=== PATIENT | female | born 1980 | race Caucasian/White ===

== ENCOUNTER 2022-12-15 20:05 | Emergency (ER) | payer MEDICAID ==
[~2022-12-15] VITALS: Ht 154.9 cm; Wt 58.8 kg
[2022-12-15] MEDS ORDERED: ONDANSETRON HCL 4MG/2ML INJ IV NR (20:15)
[2022-12-15] MEDS ORDERED: SODIUM CHLORIDE 0.9% 500 ML IV NR (20:38)
[2022-12-15 20:48] LABS: HEMATOCRIT. 38.8 % (36.0-48.0); HEMOGLOBIN. 12.9 g/dL (12.0-16.0); MEAN CORPUSCULAR VOLUME 90.3 fL (81.0-99.0); MEAN PLATELET VOLUME 9.1 fl (7.4-10.4); PLATELET 313 x1000/uL (130-400); RED CELL DISTRIBUTION WIDTH 14.7 % (11.6-14.6)
[2022-12-15 20:56] LABS: CHLORIDE 107 mEq/L (98-107)
[2022-12-15 21:00] VITALS: BP 115/72
[2022-12-15 21:37] LABS: PLATELET ESTIMATE NORMAL
== END 2022-12-15 22:36 | disposition left against medical advice (07) ==
LOC: ER 20:05
DX: Z53.21 Procedure and treatment not carried out due to patient leaving prior to being seen by health care provider (principal)
CPT/HCPCS: 36415; 80053; 85025

== ENCOUNTER 2024-03-28 07:08 | Emergency (ER) | payer OTHER, MEDICAID ==
[~2024-03-28] VITALS: Ht 165.1 cm; Wt 66.0 kg
[2024-03-28 07:09] VITALS: O2SAT 99
[2024-03-28] MEDS: ASPIRIN 325MG EC TABLET PO ONE (08:09)
[2024-03-28 08:45] LABS: BASOPHILS % 0.5 % (0.0-2.0); HEMATOCRIT. 34.8 % (36.0-48.0); HEMOGLOBIN. 10.8 g/dL (12.0-16.0); LYMPHOCYTES % 24.4 % (20.0-50.0); MEAN CORPUSCULAR HEMOGLOBIN 29.7 pg (28.0-32.0); MEAN CORPUSCULAR HGB CONC 31.2 g/dL (31.0-37.0); MEAN CORPUSCULAR VOLUME 95.2 fL (81.0-99.0); MEAN PLATELET VOLUME 7.5 fl (7.4-10.4); MONOCYTES % 8.4 % (2.0-8.0); NEUTROPHILS % 65.7 % (40.0-76.0); PLATELET 416 x1000/uL (130-400); RED BLOOD CELL COUNT 3.65 mill/uL (4.2-5.4); RED CELL DISTRIBUTION WIDTH 19.6 % (11.6-14.6); WHITE BLOOD COUNT 9.6 x1000/uL (4.5-11.0)
[2024-03-28 08:57] LABS: CHLORIDE 106 mEq/L (98-107); POTASSIUM 5.7 mEq/L (3.5-5.1); SODIUM 132 mEq/L (136-145)
[2024-03-28 08:58] LABS: CALCIUM 9.5 mg/dL (8.7-10.4); CARBON DIOXIDE 22 mEq/L (21-32)
[2024-03-28 09:03] LABS: CREATININE 0.4 mg/dL (0.6-1.0); GLUCOSE 93 mg/dL (70-105); UREA NITROGEN BLOOD 10 mg/dL (9-23)
[2024-03-28 09:14] LABS: TROPONIN I HIGH SENSITIVITY < 4 ng/L (3.0-34)
[2024-03-28] MEDS: METOCLOPRAMIDE HCL 10MG/2ML VIAL IV ONE (09:19)
[2024-03-28] MEDS ORDERED: INSULIN REGULAR (HUMULIN R) 1000UNITS/10ML VIAL IV ONE (09:30)
[2024-03-28] MEDS ORDERED: ALBUTEROL (0.083%) 2.5MG/3ML NEB HHN ONE (09:30)
[2024-03-28 09:55] LABS: HCG SCREEN NEGATIVE
[2024-03-28] MEDS: INSULIN REGULAR (HUMULIN R) 1000UNITS/10ML VIAL IV ONE (10:01)
[2024-03-28] MEDS: DEXTROSE 50% WATER 50ML SYRINGE IV ONE (10:03)
[2024-03-28] MEDS: SODIUM ZIRCONIUM CYCLOSILICATE 10GM/PACKET PO ONE (10:31)
[2024-03-28] MEDS ORDERED: IPRATROPIUM/ALBUTEROL 0.5-3(2.5)MG/3ML NEB HHN PRN (10:45)
[2024-03-28] MEDS ORDERED: DOCUSATE SODIUM 100MG CAPSULE PO PRN (10:45)
[2024-03-28] MEDS ORDERED: ACETAMINOPHEN 325MG TABLET PO PRN ×2 (10:45)
[2024-03-28] MEDS ORDERED: DEXTROSE 50% WATER 50ML SYRINGE IV PRN (10:45)
[2024-03-28] MEDS ORDERED: CLONIDINE 0.1MG TABLET PO PRN (10:45)
[2024-03-28] MEDS ORDERED: ONDANSETRON HCL 4MG/2ML INJ IV PRN (10:45)
[2024-03-28] MEDS ORDERED: IOHEXOL-350 100 ML BOTTLE ONE (11:48)
[2024-03-28 12:31] LABS: POTASSIUM 3.7 mEq/L (3.5-5.1)
[2024-03-28 12:37] LABS: TRIGLYCERIDE 163 mg/dL (0-150)
[2024-03-28 12:38] LABS: LDL CHOLESTEROL 76 mg/dL (5-100)
[2024-03-28 12:39] LABS: CHOLESTEROL 137 mg/dL (<200); HDL CHOLESTEROL 36 mg/dL (>65); TROPONIN I HIGH SENSITIVITY < 4 ng/L (3.0-34)
[2024-03-28 12:42] LABS: THYROID STIMULATING HORMONE 1.51 uIU/mL (0.55-4.78)
[2024-03-28] MEDS: BLOOD SUGAR DIAGNOSTIC STRIP TEST SCH (13:34)
[2024-03-28] MEDS: INSULIN LISPRO 100 UNITS/ML SUBCUT SCH (13:37)
[2024-03-28 14:09] VITALS: BP 133/81; PULSE 95; RESP 9; TEMP 36.89184; O2SAT 100
== END 2024-03-28 14:33 | disposition short-term general hospital (02) ==
LOC: ER 07:08
DX: R07.81 Pleurodynia (principal); I10 Essential (primary) hypertension; E11.9 Type 2 diabetes mellitus without complications; C50.919 Malignant neoplasm of unspecified site of unspecified female breast; E87.5 Hyperkalemia; Z20.822 Contact with and (suspected) exposure to COVID-19
CPT/HCPCS: 80061; 80048; 82962; 83036; 84703; 83880; 84132; 84443; 85025; 85610; 84484; 36415; 71045; 71275; 93005; 96372; 96374; 96375; 99285; 87426; Q9967; Z7610 ×2; J1815 ×2; J2765